=== PATIENT | male | born 1990 | race Caucasian/White ===

== ENCOUNTER → 2017-01-30 | Outpatient (CLI) | payer BC ==
--- NOTE | 2017-01-30 15:28 | US ---
EXAMINATION TYPE: US mass soft tissue chest/back DATE OF EXAM: 01/30/2017 COMPARISON: NONE CLINICAL HISTORY: 27-year-old male Soft tissue swelling of back, R60.9. TECHNIQUE: Multiple sonographic images at the site of right upper back swelling were obtained. FINDINGS: US right upper back: Small cystic structure noted in these superficial subcutaneous fat with a small extension to involve the skin. Some internal vascularity is noted. This measures 5 x 14 x 3 mm. IMPRESSION: At the site of swelling along the right upper back, there is a cystic structure which partially invol ves the skin. Given vascularity here, findings could represent an inflamed sebaceous or epidermal inc lusion cyst.
== END | disposition home or self-care (01) ==
LOC: RADUSWWP 12:19
PROVIDERS: ATTEND Internal Medicine
DX: R22.2 Localized swelling, mass and lump, trunk (principal)